=== PATIENT | male | born 1985 | race African-American/Black ===

== ENCOUNTER 2018-09-06 12:53 | Inpatient (IN) | payer OTHER ==
[2018-09-06 15:34] VITALS: BMI 28.9
--- NOTE | 2018-09-06 17:13 | HP ---
COWS - Scale Resting Pulse: 0= DE 80 or Below Sweatin= No chills or Flushing Restless Observation: 0= Sits Still Pupil Size: 0= Normal to Room Light Bone or Joint Aches: 0= None Runny Nose/ Eye Tearin= None GI Upset > 30mins: 0= None Tremor Observation: 0= None Yawning Observation: 0= None Anxiety or Irritability: 0= None Goose Flesh Skin: 0=Smooth Skin COWS Score: 0 CIWA Score - Admission Criteria OASAS Guidelines: Admission for Medically Managed Detox: Requires at least one of the followin. CIWA greater than 12 2. Seizures within the past 24 hours 3. Delirium tremens within the past 24 hours 4. Hallucinations within the past 24 hours 5. Acute intervention needed for co occurring medical disorder 6. Acute intervention needed for co occurring psychiatric disorder 7. Severe withdrawal that cannot be handled at a lower level of care (continued vomiting, continued diarrhea, abnormal vital signs) requiring intravenous medication and/or fluids 8. Admission ROS [facility] - HPI Allergies/Adverse Reactions: Allergies Allergy/AdvReac Type Severity Reaction Status Date / Time Penicillins Allergy Mild Verified 09/06/18 17:00 History of Present Illness: patient here referred by [facility] , has court 10/05/18 , in outpt program since April 2018 [place] [facility]. States was sent to rehab due to missing outpt program days, pt states he was avoiding getting into a fight with people who were following him. 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 utox : + thc, + opi , denies opiate use . robyn 0.000 cannabis use : intermittent , denies daily use tobacco : occasional etoh use : denies PMHx : denies PShx : denies Psych : denies Meds : denies Legal : current DWI , has court 10/05/18 - Ebola screening Have you traveled outside of the country in the last 21 days: No Have you had contact with anyone from an Ebola affected area: No Have you been sick,other than usual withdrawal symptoms: No Do you have a fever: No - Review of Systems Constitutional: No Symptoms Reported EENT: reports: No Symptoms Reported Respiratory: reports: No Symptoms reported Cardiac: reports: No Symptoms Reported GI: reports: No Symptoms Reported : reports: No Symptoms Reported Musculoskeletal: reports: No Symptoms Reported Integumentary: reports: No Symptoms Reported Neuro: reports: No Symptoms reported Endocrine: reports: No Symptoms Reported Hematology: reports: No Symptoms Reported Psychiatric: reports: Orientated x3, Agitated, Anxious Patient History - Smoking Cessation Smoking history: Current some day smoker Have you smoked in the past 12 months: Yes Aproximately how many cigarettes per day: 4 Hx Chewing Tobacco Use: No Initiated information on smoking cessation: No Admission Physical Exam S - Vital Signs Vital Signs: Vital Signs - 24 hr 09/06/18 15:32 Temperature 97.3 F L Pulse Rate 74 Respiratory 20 Rate Blood Pressure 115/71 - Physical General Appearance: Yes: Disheveled, Anxious HEENTM: Yes: Hearing grossly Normal, Normocephalic, Normal Voice Respiratory: Yes: Chest Non-Tender, Lungs Clear, Normal Breath Sounds Neck: Yes: No masses,lesions,Nodules, Trachea in good position Cardiology: Yes: Regular Rhythm, Regular Rate, S1, S2 Abdominal: Yes: Normal Bowel Sounds, Non Tender Genitourinary: Yes: Within Normal Limits Back: Yes: Normal Inspection Musculoskeletal: Yes: full range of Motion, Gait Steady Extremities: Yes: Normal Capillary Refill, Normal Range of Motion Neurological: Yes: Fully Oriented, Motor Strength 5/5, Normal Mood/Affect Integumentary: Yes: Normal Color, Dry, Warm - Diagnostic (1) Cannabis dependence Current Visit: Yes Status: Acute [facility]HS Breath Alcohol Content Breath Alcohol Content: 0 Urine Drug Screen - Results Drug Screen Negative: No Urine Drug Screen Results: THC-Marijuana, OPI-Opiates
[2018-09-06] MEDS ORDERED: MAGNESIUM CITRATE 300 ML BOTTLE PO PRN (17:27)
[2018-09-06] MEDS ORDERED: MENTHOL/PHENOL 1 EACH UD MM PRN (17:27)
[2018-09-06] MEDS ORDERED: IBUPROFEN 400 MG TABLET (FP) PO PRN (17:27)
[2018-09-06] MEDS ORDERED: guaiFENesin/D-METHORPHAN HB 10 ML UNIT-DOSE CUPS PO PRN (17:27)
[2018-09-06] MEDS ORDERED: ACETAMINOPHEN 325 MG TABLET (FP) PO PRN (17:27)
[2018-09-06] MEDS ORDERED: P-EPHED 60MG/TRIPROLIDI 2.5MG TABLET PO PRN (17:27)
[2018-09-06] MEDS ORDERED: MAG HYDROX/AL HYDROX/SIMETH 30 ML UNIT-DOSE CUP PO PRN (17:27)
[2018-09-06] MEDS ORDERED: hydrOXYzine PAMOATE 25 MG CAPSULE (FP) PO PRN (17:27)
[2018-09-06] MEDS ORDERED: MAGNESIUM HYDROX 2400MG/30ML ORAL SUSPENSION 30 ML CUP PO PRN (17:27)
[2018-09-06 20:03] VITALS: BP 125/69; PULSE 71; TEMP 99.6
[2018-09-06] MEDS ORDERED: THIAMINE HCL 100 MG TABLET (FP) PO SCH (22:00)
[2018-09-06] MEDS ORDERED: MELATONIN 5 MG TABLETS PO PRN (22:00)
[2018-09-06] MEDS ORDERED: TUBERCULIN PPD 5 TU/0.1ML VIAL ID ONE (22:15)
[2018-09-06 22:59] LABS: URINE APPEARANCE CLEAR; URINE BILIRUBIN NEGATIVE (<2.0 mg/dL); URINE COLOR YELLOW; URINE GLUCOSE (UA) NEGATIVE (NEGATIVE); URINE KETONE NEGATIVE (NEGATIVE); URINE LEUK ESTERASE NEGATIVE (NEGATIVE); URINE NITRITE NEGATIVE (NEGATIVE); URINE PROTEIN 1+ (NEGATIVE)
[2018-09-06 23:14] LABS: URINE BACTERIA RARE /hpf (NONE SEEN); URINE MUCUS MANY
[2018-09-07] MEDS ORDERED: PRENATAL VITAMINS W/ FOLIC ACID TABLET (FP) PO SCH (10:00)
--- NOTE | 2018-09-07 10:57 | PN ---
Psychiatric Progress Note Vital Signs: Vital Signs Period Temp Pulse Resp BP Sys/Diamond Pulse Ox Last 24 Hr 97.3 F-99.6 F 71-74 18-20 115-125/69-71 Date of Session: 09/07/18 Chief Complaint:: "administrative discharge" HPI: Patient admitted to for cannabis dependence. ROS: denies. endorses good health. Current Medications: Active Medications Generic Name Dose Route Start Last Admin Trade Name Freq PRN Reason Stop Dose Admin Acetaminophen 650 mg 09/06/18 17:27 Tylenol - PO Q4H PRN FEVER Al Hydroxide/Mg Hydroxide 30 ml 09/06/18 17:27 Mylanta Oral Suspension - PO Q6H PRN DYSPEPSIA Eucalyptus/Menthol/Phenol/Sorbitol 1 each 09/06/18 17:27 Cepastat Lozenge - MM Q4H PRN SORE THROAT Guaifenesin 10 ml 09/06/18 17:27 Robitussin Dm - PO Q6H PRN COUGH Hydroxyzine Pamoate 25 mg 09/06/18 17:27 Vistaril - PO Q4H PRN AGITATION Ibuprofen 400 mg 09/06/18 17:27 Motrin - PO Q6H PRN Pain level 4-6 Magnesium Citrate 300 ml 09/06/18 17:27 Citroma - PO Q48H PRN CONSTIPATION Magnesium Hydroxide 30 ml 09/06/18 17:27 Milk Of Magnesia - PO DAILY PRN CONSTIPATION Melatonin 5 mg 09/06/18 22:00 Melatonin PO HS PRN INSOMNIA Multivit/Folic Acid/Iron 1 tab 09/07/18 10:00 09/07/18 10:20 Vitamins (Sjr) - PO Not Given DAILY NEVA Pseudoephedrine/Triprolidine 1 combo 09/06/18 17:27 Actifed - PO TID PRN NASAL CONGESTION Thiamine HCl 100 mg 09/06/18 22:00 09/06/18 22:03 Vitamin B1 - PO Not Given HS NEVA Medication(s) Change(s): No. Current Side Effect: No Lab tests ordered: No Lab tests reviewed: Yes Provider note:: Type Caster met with patient in the presence of counselor and security. As per nursing report patient has been exhibiting inappropriate sexual behavior since admission to on 09/06/18. Since admission to [facility] he has been asking patient M.P. for sexual favors (oral/sexual intercourse), pressuring patient to come into his room and making inappropriate remarks to patient such as " i want you to give me head." In addition, the evening staff witness patient on numerous occasion follow patient Jolie around the unit. As per M.P, patient knocked on his bedroom door at 6:00am this morning as a continue attempt to engaged in sexual behavior with patient. Julián.Ebonie reported feeling anxious, uncomfortable, and was contemplating leaving rehab. Due to patient's inappropriate sexual behavior which was furthering escalating it was imminent that patient be administratively discharged from . Chart reviewed and patient denied having a psychiatric history. Patient irritable and unwilling to speak to psychiatric nurse practitioner after he was informed that he would be discharged. No psychosis noted. Patient given an administrative discharge on 09/07/18. Total face to face time:: 30 Mental Status Exam - Mental Status Exam Alert and Oriented to: Time, Place, Person Cognitive Function: Good Patient Appearance: Well Groomed Mood: Euthymic, Irritable Affect: Mood Congruent Patient Behavior: Cooperative (slightly irrritable and agitated but able to cooperate and leave unit without difficulty.) Speech Pattern: Clear Voice Loudness: Normal Thought Process: Intact, Goal Oriented Thought Disorder: Not Present Hallucinations: Denies Suicidal Ideation: Denies Homicidal Ideation: Denies Insight/Judgement: Poor Sleep: Fair Appetite: Fair Muscle strength/Tone: Normal Gait/Station: Normal Psychiatric Treatment Plan - Problem List (1) Cannabis dependence Current Visit: Yes
[2018-09-07 14:26] LABS: HEMATOCRIT 42.2 % (35.4-49); MCH 30.9 pg (25.7-33.7); MCHC 33.2 g/dl (32.0-35.9); MEAN CELL VOLUME 93.2 fl (80-96); MEAN PLT VOLUME 7.3 fl (7.5-11.1); PLATELET COUNT 322 K/MM3 (134-434); RBC 4.53 M/mm3 (4.00-5.60); RDW 13.5 % (11.9-15.9); WHITE BLOOD COUNT 6.2 K/mm3 (4.0-10.0)
[2018-09-07 15:12] LABS: ALBUMIN 3.4 g/dl (3.4-5.0); ALK PHOS 80 U/L (45-117); ANION GAP 10 MMOL/L (8-16); BILIRUBIN,TOTAL 0.2 mg/dL (0.2-1); BLOOD UREA NITROGEN 11 mg/dL (7-18); CALCIUM 8.3 mg/dL (8.5-10.1); CHLORIDE 110 mmol/L (98-107); CO2 23 mmol/L (21-32); CREATININE 0.7 mg/dL (0.55-1.3); GLUCOSE,RANDOM 112 mg/dL (74-106); POTASSIUM 4.5 mmol/L (3.5-5.1); SGOT/AST 23 U/L (15-37); SGPT/ALT 24 U/L (13-61); SODIUM 142 mmol/L (136-145); TOT PROT 6.4 g/dl (6.4-8.2)
== END 2018-09-07 10:30 | disposition left against medical advice (07) | DRG 772 ==
LOC: YASAS 12:53 → Y5N 18:13
PROVIDERS: ADMIT Psychiatry & Neurology Psychiatry; ATTEND Psychiatry & Neurology Psychiatry
PROC: HZ42ZZZ Group Counseling for Substance Abuse Treatment, Cognitive-Behavioral (ICD-10-PCS; principal; 2018-09-06)
DX: F12.20 Cannabis dependence, uncomplicated (principal); F91.8 Other conduct disorders
CPT/HCPCS: 36415; 80053; 81003; 81015; 85027; 86593